=== PATIENT | female | born 1985 | race Caucasian/White ===

== ENCOUNTER 2017-05-28 22:54 | Emergency (ER) | payer MEDICAID, OTHER ==
[~2017-05-28] VITALS: Ht 167.6 cm; Wt 56.0 kg
[2017-05-28 22:57] VITALS: Ht 167.6 cm; Wt 56.0 kg
[2017-05-29] MEDS ORDERED: morphine 4 MG/ML VIAL IV STA (03:52)
[2017-05-29] MEDS ORDERED: ONDANSETRON 4 MG INJ IV STA (03:52)
[2017-05-29] MEDS ORDERED: SOD CHLORIDE 0.9% 1,000 ML IV STA (03:52)
--- NOTE | 2017-05-29 04:19 | ERD ---
ER Documentation Chief Complaint Date/Time DATE: 05/29/17 TIME: 04:15 Chief Complaint c/o abd pain with n/v since 1999. (EILEEN CASTLE NP) HPI 31-year-old female presents here to emergency department for complaints of abdominal pain nausea vomiting started last night. Patient is complaining of generalized abdominal pain cramping pain 4/10 scale, not better or worse with anything. Patient denies any blood in vomit. Patient denies any blood in the stool or black stool. Patient denies any diarrhea or constipation. Patient denies any hematuria or dysuria. (EILEEN CASTLE NP) ROS All systems reviewed and are negative except as per history of present illness. (EILEEN CASTLE NP) Medications Home Meds Active Scripts Ciprofloxacin Hcl* (Ciprofloxacin Hcl*) 500 Mg Tablet, 500 MG PO BID for 5 Days , TAB Prov:LINDA CASTREJON PA-C 05/29/17 Ondansetron (Ondansetron Odt) 4 Mg Tab.rapdis, 4 MG PO Q8 Y for NAUSEA AND/OR VOMITING, #20 TAB Prov:EILEEN CASTLE NP 05/29/17 Tramadol HCl (Tramadol HCl) 50 Mg Tablet, 50 MG PO Q6 Y for SEVERE PAIN LEVEL 7- 10, #20 TAB Prov:EILEEN CASTLE NP 05/29/17 Magaldrate/Simethicone* (Mylanta*) 355 Ml Susp, 30 ML PO QID Y for GASTROINTESTINAL UPSET, #1 BOTTLE Prov:EILEEN CASTLE NP 05/29/17 Omeprazole* (Omeprazole*) 20 Mg Capsule.dr, 20 MG PO DAILY, #30 Prov:EILEEN CASTLE NP 05/29/17 Reported Medications [none] Unknown Strength No Conflict Check 05/29/17 Allergies Allergies: Coded Allergies: No Known Allergy (Unverified , 05/29/17) PMhx/Soc Medical and Surgical Hx: pt denies Medical Hx, pt denies Surgical Hx Hx Cardiac Disorders: Yes (arrythmia) Hx Alcohol Use: No Hx Substance Use: No Hx Tobacco Use: No Smoking Status: Never smoker (EILEEN CASTLE NP) FmHx Family History: No coronary disease, No diabetes, No other (EILEEN CASTLE NP) Physical Exam Vitals Vital Signs Date Time Temp Pulse Resp B/P Pulse Ox O2 Delivery O2 Flow Rate FiO2 05/29/17 08:01 98.7 89 18 109/63 98 05/28/17 22:57 99.2 100 18 114/60 97 (LINDA CASTREJON PA-C) Physical Exam GENERAL: The patient is well developed and appropriate for usual state of health, in no apparent distress. CHEST: Clear to auscultation bilaterally. There are no rales, wheezes or rhonchi. HEART: Regular rate and rhythm. No murmurs, clicks, rubs or gallops. No S3 or S4. ABDOMEN: Soft, nontender and nondistended. Good bowel sounds. No rebound or guarding. No gross peritonitis. No gross organomegaly or masses. No Rivero sign or McBurney point tenderness. BACK: No midline or flank tenderness. EXTREMITIES: Equal pulses bilaterally. There is no peripheral clubbing, cyanosis or edema. No focal swelling or erythema. Full range of motion. Grossly neurovascularly intact. NEURO: Alert and oriented. Cranial nerves 2-12 intact. Motor strength in all 4 extremities with 5/5 strength. Sensation grossly intact. Normal speech and gait. SKIN: There is no apparent rash or petechia. The skin is warm and dry. HEMATOLOGIC AND LYMPHATIC: There is no evidence of excessive bruising or lymphedema. No gross cervical, axillary, or inguinal lymphadenopathy. (EILEEN CASTLE NP) Result Diagram: 05/29/17 0405 05/29/17 0552 Results 24 hrs Laboratory Tests Test 05/29/17 04:00 05/29/17 04:05 05/29/17 05:52 Urine Color YELLOW Urine Clarity SLIGHTLY CLOUDY Urine pH 6.0 Urine Specific [place] 1.025 Urine Ketones NEGATIVEmg/dL Urine Nitrite NEGATIVEmg/dL Urine Bilirubin NEGATIVEmg/dL Urine Urobilinogen 1+mg/dL Urine Leukocyte Esterase 1+Paul/ul Urine Microscopic RBC 7/HPF Urine Microscopic WBC 6/HPF Urine Squamous Epithelial Cells FEW/HPF Urine Mucus FEW/HPF Urine Hemoglobin NEGATIVEmg/dL Urine Glucose NEGATIVEmg/dL Urine Total Protein NEGATIVEmg/dl White Blood Count 9.210^3/ul Red Blood Count 4.2910^6/ul Hemoglobin 14.1g/dl Hematocrit 42.8% Mean Corpuscular Volume 99.8fl Mean Corpuscular Hemoglobin 32.9pg Mean Corpuscular Hemoglobin Concent 32.9g/dl Red Cell Distribution Width 12.5% Platelet Count 49346^3/UL Mean Platelet Volume 10.6fl Neutrophils % 83.3% Lymphocytes % 6.5% Monocytes % 4.7% Eosinophils % 5.1% Basophils % 0.1% Nucleated Red Blood Cells % 0.0/100WBC Neutrophils # 7.710^3/ul Lymphocytes # 0.610^3/ul Monocytes # 0.410^3/ul Eosinophils # 0.510^3/ul Basophils # 0.010^3/ul Nucleated Red Blood Cells # 0.010^3/ul Sodium Level 141mmol/L Potassium Level 4.2mmol/L Chloride Level 107mmol/L Carbon Dioxide Level 25mmol/L Anion Gap 13 Blood Urea Nitrogen 10mg/dl Creatinine 0.65mg/dl Glucose Level 96mg/dl Calcium Level 7.9mg/dl Total Bilirubin 0.4mg/dl Direct Bilirubin 0.00mg/dl Indirect Bilirubin 0.4mg/dl Aspartate Amino Transf (AST/SGOT) 18IU/L Alanine Aminotransferase (ALT/SGPT) 33IU/L Alkaline Phosphatase 75IU/L Total Protein 7.1g/dl Albumin 3.9g/dl Globulin 3.20g/dl Albumin/Globulin Ratio 1.21 Lipase 109U/L Current Medications Medications (Trade) Dose Ordered Sig/Jr Route PRN Reason Start Time Stop Time Status Last Admin Dose Admin Sodium Chloride (NS) 1,000 ml @ 1,000 mls/hr Q1H STAT IV 05/29/17 03:52 05/29/17 04:51 DC 05/29/17 04:08 Morphine Sulfate (morphine) 4 mg ONCE STAT IV 05/29/17 03:52 05/29/17 03:54 DC 05/29/17 04:07 Ondansetron HCl (Zofran Inj) 4 mg ONCE STAT IV 05/29/17 03:52 05/29/17 03:54 DC 05/29/17 04:08 (BASHARDOUST,NUSHA N. PA-C) Results 24 hrs Patient was given medication for pain here in emergency department, after treatment, patient verbalized feeling much better. Patient's pain is improved. Patient was given Zofran here in the emergency department. After treatment, patient was able to tolerate po fluids here in the emergency department without any vomiting. There is no signs and symptoms of dehydration. Normal saline IV bolus was given here in emergency department for rehydration, patient tolerated IV fluids. PROCEDURE: CT Abdomen and pelvis without contrast. CLINICAL INDICATION: Abdominal pain. TECHNIQUE: CT scan of the abdomen and pelvis was performed on a multi- detector high-resolution CT scanner. Contiguous axial images were obtained from the lung bases to the ischial tuberosities without intravenous contrast. Coronal and sagittal reformatted images were also obtained. Images were reviewed on the PACS workstation. One or more of the following dose reduction techniques were used: - Automated exposure control. - Adjustment of the mA and/or kV according to patient size. - Use of iterative reconstruction technique. Exam CTD/vol = 5.79 mGy. Total exam DLP = 326.75 mGy-cm. COMPARISON: None. FINDINGS: Evaluation of the lung bases demonstrates no pleural or parenchymal disease. Abdomen: The liver is normal in size. There is no focal mass or dilatation of the biliary tree. The gallbladder is not distended. The spleen, pancreas and bilateral adrenal glands are within normal limits. Bilateral kidneys are normal in size with a small cyst within the lower pole of the right kidney. There is no radiopaque renal or ureteral calculus identified. There is minimal hydronephrosis bilaterally. There is no retroperitoneal adenopathy. The abdominal aorta is of normal caliber. There are mildly distended loops of small bowel. There is no bowel obstruction or free air. A normal appendix is identified. There is no diverticulosis or diverticulitis. There is no ascites. Pelvis: The bladder is unremarkable. The uterus and adnexa are within normal limits. There is no significant pelvic adenopathy or free fluid. Evaluation of the osseous structures demonstrates no suspicious lytic or blastic lesion. There are Tarlov cysts causing mild smooth expansion of the sacral canal. IMPRESSION: Mildly distended loops of small bowel suggestive of an ileus. There is no bowel obstruction. Bilateral minimal hydronephrosis. There is no radiopaque renal or ureteral calculus identified. 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 .Corey Agee MD, MD Date Time Electronically viewed and signed by .Corey Agee MD, MD on 05/29/2017 04:37 .T/ CC: EILEEN CASTLE NP (EILEEN CASTLE NP) Procedures/MDM Medical Decision Making: Patient's symptoms most likely is consistent with gastritis, can be also viral in origin. There is low suspicion for abdominal emergencies at this time. Patients abdominal exam is normal at this time. Patients radiology exam does not show any abdominal emergencies at this time. There is low suspicion for appendicitis, cholecystitis, abdominal aortic aneurysms or peritonitis at this time. There is low suspicion for sepsis. Patient appears well and is hemodynamically stable. Patient also has urinary tract infection and will be treated. Disposition: Home. Condition: Stable Prescription ciprofloxacin, Zofran, Mylanta, omeprazole, tramadol Instructions: Patient is advised to take medications as prescribed. Patient is advised to rest, increase fluid intake and do brat diet for next 1-2 days and progress as tolerated. Patient is advised that if symptoms are worse, severe abdominal pain, uncontrolled vomiting, high fever, severe flank pain, worst signs and symptoms, to return to the emergency department immediately. Otherwise, patient can follow up with primary care doctor in 5-7 days. Disclaimer: Inadvertent spelling and grammatical errors are likely due to EHR/ dictation software use and do not reflect on the overall quality of patient care. Also, please note that the electronic time recorded on this note does not necessarily reflect the actual time of the patient encounter. (EILEEN CASTLE NP) Departure Diagnosis: Primary Impression: Abdominal pain Abdominal location: generalized Qualified Code: R10.84 - Generalized abdominal pain Condition: Stable EILEEN CASTLE NP May 29, 2017 04:18 LINDA CASTREJON PA-C May 29, 2017 10:12
--- NOTE | 2017-05-29 04:37 | RADRPT ---
PROCEDURE: CT Abdomen and pelvis without contrast. CLINICAL INDICATION: Abdominal pain. TECHNIQUE: CT scan of the abdomen and pelvis was performed on a multi-detector high-resolution CT scanner. Contiguous axial images were obtained from the lung bases to the ischial tuberosities wit hout intravenous contrast. Coronal and sagittal reformatted images were also obtained. Images were reviewed on the PACS workstation. One or more of the following dose reduction techniques were used: - Automated exposure control. - Adjustment of the mA and/or kV according to patient size. - Use of iterative reconstruction technique. Exam CTD/vol = 5.79 mGy. Total exam DLP = 326.75 mGy-cm. COMPARISON: None. FINDINGS: Evaluation of the lung bases demonstrates no pleural or parenchymal disease. Abdomen: The liver is normal in size. There is no focal mass or dilatation of the biliary tree. T he gallbladder is not distended. The spleen, pancreas and bilateral adrenal glands are within estuardo l limits. Bilateral kidneys are normal in size with a small cyst within the lower pole of the right kidney. There is no radiopaque renal or ureteral calculus identified. There is minimal hydronephr osis bilaterally. There is no retroperitoneal adenopathy. The abdominal aorta is of normal caliber . There are mildly distended loops of small bowel. There is no bowel obstruction or free air. A norm al appendix is identified. There is no diverticulosis or diverticulitis. There is no ascites. Pelvis: The bladder is unremarkable. The uterus and adnexa are within normal limits. There is no significant pelvic adenopathy or free fluid. Evaluation of the osseous structures demonstrates no suspicious lytic or blastic lesion. There are T arlov cysts causing mild smooth expansion of the sacral canal. IMPRESSION: Mildly distended loops of small bowel suggestive of an ileus. There is no bowel obstruction. Bilateral minimal hydronephrosis. There is no radiopaque renal or ureteral calculus identified. 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 .Corey Agee MD, MD Date Time Electronically viewed and signed by .Corey Agee MD, MD on 05/29/2017 04:37 .T/
[2017-05-29 04:49] LABS: BASOPHILS % 0.1 % (0.0-2.0); EOSINOPHILS # 0.5 10^3/ul (0.0-0.5); EOSINOPHILS % 5.1 % (0.0-7.0); HEMATOCRIT 42.8 % (37.0-47.0); HEMOGLOBIN 14.1 g/dl (12.0-16.0); LYMPHOCYTES # 0.6 10^3/ul (0.8-2.9); LYMPHOCYTES % 6.5 % (15.0-51.0); MEAN CORPUSCULAR HEMOGLOBIN 32.9 pg (29.0-33.0); MEAN CORPUSCULAR HGB CONC 32.9 g/dl (32.0-37.0); MEAN CORPUSCULAR VOLUME 99.8 fl (82.0-101.0); MEAN PLATELET VOLUME 10.6 fl (7.4-10.4); MONOCYTE # 0.4 10^3/ul (0.3-0.9); MONOCYTES % 4.7 % (0.0-11.0); NEUTROPHIL # 7.7 10^3/ul (1.6-7.5); NEUTROPHILS % 83.3 % (39.0-77.0); PLATELET COUNT 299 10^3/UL (140-415); RED BLOOD COUNT 4.29 10^6/ul (4.20-5.40); RED CELL DISTRIBUTION WIDTH 12.5 % (11.5-14.5); WHITE BLOOD COUNT 9.2 10^3/ul (4.8-10.8)
[2017-05-29 05:03] LABS: ADD UMIC YES; UR ASCORBIC ACID NEGATIVE (NEGATIVE); UR BILIRUBIN (Dip) NEGATIVE (NEGATIVE); UR BLOOD (Dip) NEGATIVE (NEGATIVE); UR CLARITY SLIGHTLY CLOUDY (CLEAR); UR COLOR YELLOW (YELLOW); UR GLUCOSE (Dip) NEGATIVE (NEGATIVE); UR KETONES (Dip) NEGATIVE (NEGATIVE); UR LEUKOCYTE ESTERASE (Dip) 1+ Leu/ul (NEGATIVE); UR MUCUS FEW /HPF (NONE SEEN); UR NITRITE (Dip) NEGATIVE (NEGATIVE); UR RBC 7 /HPF (0-5); UR SPECIFIC GRAVITY (Dip) 1.025 (1.003-1.030); UR SQUAMOUS EPITHELIAL CELL FEW /HPF (FEW); UR TOTAL PROTEIN (Dip) NEGATIVE (NEGATIVE); UR UROBILINOGEN (Dip) 1+ mg/dL (NEGATIVE)
[2017-05-29] MEDS ORDERED: TRAM50TA2 PO (05:56)
[2017-05-29] MEDS ORDERED: OMEP20CA16 PO (05:56)
[2017-05-29] MEDS ORDERED: MAG-19 PO (05:56)
[2017-05-29] MEDS ORDERED: ONDA4TAB14 PO (05:57)
[2017-05-29 06:23] LABS: ALBUMIN 3.9 g/dl (3.3-4.9); ALBUMIN/GLOBULIN RATIO 1.21; BILIRUBIN,INDIRECT 0.4 mg/dl (0-1.1); BILIRUBIN,TOTAL 0.4 mg/dl (0.2-1.3); CALCIUM 7.9 mg/dl (8.4-10.2); CREATININE 0.65 mg/dl (0.44-1.00); POTASSIUM 4.2 mmol/L (3.5-5.1); TOTAL PROTEIN 7.1 g/dl (6.1-8.1)
[2017-05-29] MEDS ORDERED: CIPR500T4 PO (07:50)
[2017-05-29 08:01] VITALS: BP 109/63; PULSE 89; RESP 18; TEMP 98.7
== END 2017-05-29 08:02 | disposition home or self-care (01) ==
LOC: FTE 22:54
DX: R10.84 Generalized abdominal pain (principal); R11.2 Nausea with vomiting, unspecified
CPT/HCPCS: 36415; 74176; 80053; 81001; 83690; 85025; 96374; 96375; J2270; J2405; J7030; Z7502